=== PATIENT | female | born 1990 | race American Indian/Alaskan Native ===

== ENCOUNTER 2018-03-21 16:37 | Emergency (ER) | payer MEDICAID, OTHER ==
[2018-03-21 16:37] VITALS: BMI 43.2
[2018-03-21 16:54] VITALS: BP 90/50; PULSE 100; RESP 18; TEMP 100.2; O2SAT 98
--- NOTE | 2018-03-21 17:36 | ED PDOC ---
HPI: CCC, URI, Sore Throat Time Seen by Provider: 03/21/18 17:00 Chief Complaint (Nursing): ENT Problem Chief Complaint (Provider): Sore throat History Per: Patient History/Exam Limitations: no limitations Onset/Duration Of Symptoms: Days (x2) Current Symptoms Are (Timing): Still Present Associated Symptoms: Fever, Cough (mild), Other (body aches) Additional Complaint(s): 28 year old female presented to ED complaining of a sore throat with onset of 2 days. Patient indicates associated symptoms of body aches, fever, and mild cough. She reports her son was sick recently and took tylenol yesterday. PCP: none provided Past Medical History Reviewed: Historical Data, Nursing Documentation, Vital Signs Vital Signs: Last Vital Signs Temp 100.2 F H 03/21/18 16:51 Pulse 100 H 03/21/18 16:51 Resp 18 03/21/18 16:51 BP 90/50 L 03/21/18 16:51 Pulse Ox 98 03/21/18 17:39 - Medical History PMH: No Chronic Diseases Denies: Depression - Surgical History Surgical History: No Surg Hx - Family History Family History: States: Unknown Family Hx - Social History Current smoker - smoking cessation education provided: No Alcohol: None Drugs: Denies - Home Medications Home Medications: Ambulatory Orders Medication Instructions Recorded Glyburide [Glyburide] 2.5 mg PO DAILY 05/14/16 Vit No.126/Iron/Folic 1 tab PO DAILY 05/14/16 [Classic Tablet] Docusate [Colace] 100 mg PO BID #30 cap 05/16/16 Ibuprofen [Motrin Tab] 800 mg PO Q8 PRN 30 Days tab 05/16/16 oxyCODONE/Acetaminophen [Percocet 1 tab PO Q4 PRN #30 tab 05/16/16 5/325 mg Tab] Ibuprofen [Motrin] 600 mg PO Q8 PRN #21 tab 03/21/18 - Allergies Allergies/Adverse Reactions: Allergies Allergy/AdvReac Type Severity Reaction Status Date / Time No Known Allergies Allergy Verified 02/11/13 04:01 Review of Systems ROS Statement: Except As Marked, All Systems Reviewed And Found Negative Constitutional: Positive for: Fever, Chills, Other (body aches) ENT: Positive for: Throat Pain (sore throat) Physical Exam - Reviewed Nursing Documentation Reviewed: Yes Vital Signs Reviewed: Yes - Physical Exam Appears: Positive for: Non-toxic, No Acute Distress Head Exam: Positive for: ATRAUMATIC, NORMAL INSPECTION, NORMOCEPHALIC Skin: Positive for: Normal Color, Warm, Dry Eye Exam: Positive for: Normal appearance ENT: Positive for: Nasal Congestion (mild), Tonsillar Exudate (and mild erythema ) Respiratory: Positive for: Normal Breath Sounds. Negative for: Wheezing, Respiratory Distress Extremity: Positive for: Normal ROM Neurologic/Psych: Positive for: Alert, Oriented - ECG O2 Sat by Pulse Oximetry: 98 (RA) Pulse Ox Interpretation: Normal - Progress ED Course And Treament: RAPID STREP NEG MOTRIN 600MG Medical Decision Making Medical Decision Making: Initial Impression: sore throat Initial Plan: Motrin 600mg PO Rapid strep group Scribe Attestation: Documented by Wesley Gallahger acting as a scribe for Joe LARA. Provider Scribe Attestation: All medical record entries made by the Scribe were at my direction and personally dictated by me. I have reviewed the chart and agree that the record accurately reflects my personal performance of the history, physical exam, medical decision making, and the department course for this patient. I have also personally directed, reviewed, and agree with the discharge instructions and disposition. Disposition - Clinical Impression Clinical Impression: Pharyngitis - Patient ED Disposition Is Patient to be Admitted: No - Disposition Disposition: Routine/Home Disposition Time: 18:27 Condition: FAIR Prescriptions: Ibuprofen [Motrin] 600 mg PO Q8 PRN #21 tab PRN Reason: Pain, Moderate (4-7) Instructions: Viral Pharyngitis Forms: [employer] (Chinese), [facility] School/Work Excuse
== END 2018-03-21 18:35 | disposition home or self-care (01) ==
LOC: H.ER 16:37
DX: J02.9 Acute pharyngitis, unspecified (principal)